=== PATIENT | female | born 1970 | race Caucasian/White ===

== ENCOUNTER 2017-01-13 10:37 | Day surgery (SDC) | payer SELFPAY ==
[~2017-01-13] VITALS: Ht 157.5 cm; Wt 59.8 kg
[~2017-01-13 10:37] MED LIST: CEFOTETAN 2 GM ONE; DEXAMETHASONE 4 MG/ML, 1ML ONE; GLYCOPYRROLATE 0.2MG/1ML ONE; HYDR-3144 PO; KETOROLAC 30 MG/1 ML ONE; LORA-445 PO; METH20TA PO; NEOSTIGMINE 1 MG/ML, 10ML ONE; ONDANSETRON 2MG/ML, 2ML ONE; PHENYLEPHRINE 10 MG/ML ONE; PROPOFOL 10 MG/ML, 20ML ONE; ROCURONIUM 10 MG/ML ONE; VENL150C PO
[2017-01-13] MEDS ORDERED: SODIUM CHLORIDE 0.9% 1,000 ML IV ONE (11:21)
[2017-01-13] MEDS ORDERED: ONDANSETRON 2MG/ML, 2ML ONE (11:24)
[2017-01-13] MEDS ORDERED: HYDROmorphone 1 MG/ML, 1ML ONE (11:24)
[2017-01-13] MEDS ORDERED: SODIUM CHLORIDE FLUSH 10ML SYR IVF ONE (11:30)
[2017-01-13] MEDS ORDERED: HYDROmorphone 1 MG/ML, 1ML IVPush PRN (11:30)
[2017-01-13] MEDS ORDERED: ONDANSETRON 2MG/ML, 2ML IVPush ONE (11:30)
[2017-01-13 11:55] LABS: ASPARTATE AMINO TRANSFERASE 14 U/L (15-37); BLOOD UREA NITROGEN 13 mg/dL (7-18)
[2017-01-13 14:05] VITALS: BP 106/80
[2017-01-13] MEDS ORDERED: LACTATED RINGERS 1,000 ML IV SCH (14:13)
[2017-01-13] MEDS ORDERED: CYCL-259 PO (14:14)
[2017-01-13] MEDS ORDERED: BUPIVACAINE/PF-EPI 0.25% 1:200K ONE (14:22)
[2017-01-13] MEDS ORDERED: MIDAZOLAM 1 MG/ML, 2ML ONE (14:30)
[2017-01-13] MEDS ORDERED: FENTANYL PF 250 MCG/5ML ONE (14:30)
[2017-01-13 14:32] LABS: HCG UR OBC PASS
[2017-01-13] MEDS ORDERED: HALOPERIDOL 5 MG/ML IV PRN (15:30)
[2017-01-13] MEDS ORDERED: ONDANSETRON 2MG/ML, 2ML IVPush PRN (15:30)
[2017-01-13] MEDS ORDERED: OXYcodone 5 MG/5 ML ORAL.SOL UDC PO PRN (15:30)
[2017-01-13] MEDS ORDERED: hydrALAzine 20 MG/ML, 1ML IV PRN (15:30)
[2017-01-13] MEDS ORDERED: MIDAZOLAM 1 MG/ML, 2ML IV PRN (15:30)
[2017-01-13] MEDS ORDERED: HYDROmorphone 1 MG/ML, 1ML IV PRN (15:30)
[2017-01-13] MEDS ORDERED: MEPERIDINE/PF 25MG/0.5ML IVPush PRN (15:30)
[2017-01-13] MEDS ORDERED: ALBUTEROL SULFATE 2.5 MG/3 ML NPPB PRN (15:30)
[2017-01-13] MEDS ORDERED: FENTANYL PF 100 MCG/2ML IV PRN (15:30)
[2017-01-13] MEDS ORDERED: LABETALOL 5MG/ML, 20ML IV PRN (15:30)
[2017-01-13] MEDS ORDERED: ACETAMINOPHEN 325 MG TABLET PO PRN (15:30)
[2017-01-13] MEDS ORDERED: HALOPERIDOL 5 MG/ML ONE (15:53)
[2017-01-13] MEDS ORDERED: HYDROmorphone 2 MG/ML, 1ML ONE (16:16)
== END 2017-01-13 17:00 | disposition home or self-care (01) ==
LOC: OR 14:08 → SDC 14:09 → EDIP 14:20 → UNDOADMOB 14:20 → SDC 17:00 → UNDODISOB 17:00
PROVIDERS: ATTEND Surgery
DX: K80.12 Calculus of gallbladder with acute and chronic cholecystitis without obstruction (principal); F90.9 Attention-deficit hyperactivity disorder, unspecified type; F17.210 Nicotine dependence, cigarettes, uncomplicated; F43.10 Post-traumatic stress disorder, unspecified; F32.9 Major depressive disorder, single episode, unspecified; F41.8 Other specified anxiety disorders; Z90.710 Acquired absence of both cervix and uterus; Z90.722 Acquired absence of ovaries, bilateral; F12.90 Cannabis use, unspecified, uncomplicated
CPT/HCPCS: 36415; 47562; 76700; 80053; 81025; 83690; 85025; 85610; 88304; J1100; J1170; J1885; J2250; J2370; J2405; J2704; J2710; J3010; J7030; J3490; S0074